=== PATIENT | female | born 1990 | race Two or more races ===

== ENCOUNTER 2020-12-14 13:54 | Emergency (ER) | payer OTHER ==
[~2020-12-14] VITALS: Ht 165.1 cm; Wt 54.4 kg
[~2020-12-14 13:54] MED LIST: LEXAPRO5 MG
[2020-12-14] MEDS ORDERED: WELLBUTRIN SR150 MG PO (14:14)
== END 2020-12-14 19:33 | disposition home or self-care (01) ==
LOC: ER 13:54
DX: S00.03XA Contusion of scalp, initial encounter (principal); W22.8XXA Striking against or struck by other objects, initial encounter; Y93.89 Activity, other specified; Y92.89 Other specified places as the place of occurrence of the external cause; Y99.8 Other external cause status

== ENCOUNTER 2024-01-18 10:45 | Emergency (ER) | payer OTHER ==
[~2024-01-18] VITALS: Ht 165.1 cm; Wt 58.1 kg
[~2024-01-18 10:45] MED LIST changes: +WELLBUTRIN SR150 MG PO
[2024-01-18] MEDS ORDERED: HYOSCYAMINE SULFATE 0.125 MG TAB.SUBL ONE (11:28)
[2024-01-18] MEDS ORDERED: ONDANSETRON HCL 2 MG/ML VIAL ONE (11:28)
[2024-01-18] MEDS ORDERED: HYOSCYAMINE SULFATE 0.125 MG TAB.SUBL SL ONE (11:30)
[2024-01-18] MEDS ORDERED: ONDANSETRON HCL 2 MG/ML VIAL IM ONE (11:30)
[2024-01-18 11:50] LABS: HEMATOCRIT 33.7 % (36.0-45.00); HEMOGLOBIN 11.9 g/dL (12.0-15.00); MEAN CORPUSCULAR HEMOGLOBIN 32.1 pg (27.00-32.0); MEAN CORPUSCULAR HGB CONC 35.3 g/dl (32.0-36.0); PLATELET COUNT 222 K/uL (150-450); RED CELL DISTRIBUTION WIDTH 12.5 % (11.5-14.5)
[2024-01-18 12:17] LABS: PH,URINE 5.5 (5.0-8.0); URINE APPEARANCE Clear; URINE BACTERIA 11.3 uL (0.0-1933); URINE BILIRRUBIN Negative (NEGATIVE); URINE BLOOD Negative; URINE COLOR Yellow; URINE EPITHELIAL CELLS 2.7 uL (0.0-38.8); URINE GLUCOSE Negative (NEGATIVE); URINE KETONE Negative (NEGATIVE); URINE LEUKOCYTE Negative; URINE NITRATE Negative; URINE PROTEIN Negative (NEGATIVE); URINE RBC 12.5 uL (0.0-20.8); URINE UROBILINOGEN 0.2 E.U./dl; URINE WBC 1.8 uL (0.0-23.2)
[2024-01-18 12:38] LABS: CALCIUM 8.3 mg/dL (8.5-10.1); CREATININE SERUM 0.53 mg/dL (0.55-1.02); GFR 131.27; POTASSIUM 3.98 mEq/L (3.5-5.1)
== END 2024-01-18 17:28 | disposition home or self-care (01) ==
LOC: ER 10:46
PROVIDERS: Emergency Medicine
DX: O20.8 Other hemorrhage in early pregnancy (principal); Z3A.01 Less than 8 weeks gestation of pregnancy